=== PATIENT | male | born 1995 | race Caucasian/White ===

== ENCOUNTER 2019-01-15 21:43 | Emergency (ER) | payer SELFPAY | END 2019-01-15 22:25 | disposition left against medical advice (07) | LOC: ER 21:43 | DX: Z53.21 Procedure and treatment not carried out due to patient leaving prior to being seen by health care provider (principal); R42 Dizziness and giddiness ==

== ENCOUNTER 2019-03-30 00:11 | Emergency (ER) | payer MEDICAID ==
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
[2019-03-30 01:09] LABS: ALCOHOL 119 mg/dL (NONE DETECTED); ANION GAP 11 (5-19); BLOOD UREA NITROGEN 9 mg/dL (7-20); CALCIUM 8.9 mg/dL (8.4-10.2); CARBON DIOXIDE 27 mmol/L (22-30); CHLORIDE 102 mmol/L (98-107); GLUCOSE 104 mg/dL (75-110); POTASSIUM 3.8 mmol/L (3.6-5.0)
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
[2019-03-30 02:20] VITALS: BP 121/77
[2019-03-30 03:18] LABS: ARTERIAL BLOOD BASE EXCESS -1.9 mmol/L; ARTERIAL BLOOD H2CO3 1.35 mmol/L (1.05-1.35); ARTERIAL BLOOD O2 SATURATION 97.1 % (94-98); ARTERIAL BLOOD PH 7.35 (7.35-7.45); ARTERIAL BLOOD PO2 98.2 mmHg (80-100); ARTERIAL BLOOD TOTAL CO2 25.4 mmol/L (23-27)
[2019-03-30 03:19] LABS: ARTERIAL BLOOD FIO2 2L
[2019-03-30 03:27] LABS: ABSOLUTE EOSINOPHILS # (AUTO) 0.1 10^3/uL (0.0-0.6); ABSOLUTE MONOCYTES (AUTO) 0.3 10^3/uL (0.1-1.4); ABSOLUTE NEUT (AUTO) 4.5 10^3/uL (1.7-8.2); BASOPHILS % (AUTO) 0.5 % (0-2); HEMATOCRIT 41.3 % (37.9-51.0); HEMOGLOBIN 14.1 g/dL (13.5-17.0); LYMPHOCYTES % (AUTO) 29.3 % (13-45); MEAN CORPUSCULAR HEMOGLOBIN 29.6 pg (27.0-33.4); MEAN CORPUSCULAR HGB CONC 34.2 g/dL (32.0-36.0); MEAN CORPUSCULAR VOLUME 87 fl (80-97); PLATELET COUNT 265 10^3/uL (150-450); RED BLOOD COUNT 4.76 10^6/uL (4.35-5.55); RED CELL DISTRIBUTION WIDTH 12.9 % (11.5-14.0); SEGMENTED NEUTROPHILS % (AUTO) 64.2 % (42-78); TOTAL CELLS COUNTED % (AUTO) 100 %
[2019-03-30 03:31] LABS: ALBUMIN 4.1 g/dL (3.5-5.0); ALKALINE PHOSPHATASE 58 U/L (38-126); ASPARTATE AMINO TRANSFERASE 39 U/L (17-59); BILIRUBIN,DIRECT 0.2 mg/dL (0.0-0.4); BILIRUBIN,TOTAL 0.8 mg/dL (0.2-1.3)
[2019-03-30 03:34] LABS: URINE AMPHETAMINES SCREEN NEGATIVE; URINE BARBITURATES SCREEN NEGATIVE; URINE BENZODIAZEPINES SCREEN UNCONFIRMED POSITIVE; URINE COCAINE SCREEN NEGATIVE; URINE MARIJUANA (THC) SCREEN NEGATIVE; URINE METHADONE SCREEN NEGATIVE; URINE PHENCYCLIDINE SCREEN NEGATIVE
[2019-03-30 03:48] LABS: NT PRO BNP 25 pg/mL (<125)
[2019-03-30 03:56] LABS: TROPONIN I < 0.012 ng/mL
--- NOTE | 2019-03-30 05:47 | RADIOLOGY REPORT (SQ) ---
CLINICAL HISTORY: Repeat CXR to abnormal first (comparison) COMPARISON: March 30 2019. TECHNIQUE: XR CHEST 2 VIEWS 03/30/2019 4:26 AM CDT FINDINGS: Cardiac silhouette is normal in size. Lungs are clear without consolidation, atelectasis, mass or edema. There is no pleural effusion. There is no pneumothorax. There are no acute osseous findings. IMPRESSION: Clear lungs.
--- NOTE | 2019-03-30 19:06 | EKG REPORT ---
SEVERITY:- OTHERWISE NORMAL ECG - SINUS RHYTHM RIGHT AXIS DEVIATION : Confirmed by: Jovita Encinas MD 30-Mar-2019 19:06:04
== END 2019-03-30 06:15 | disposition home or self-care (01) ==
LOC: ER 00:11
DX: S09.90XA Unspecified injury of head, initial encounter (principal); S90.511A Abrasion, right ankle, initial encounter; R07.81 Pleurodynia; M79.641 Pain in right hand; M25.571 Pain in right ankle and joints of right foot; W19.XXXA Unspecified fall, initial encounter; F10.129 Alcohol abuse with intoxication, unspecified; R09.02 Hypoxemia; R40.0 Somnolence
CPT/HCPCS: 93005; 99284; 36415; 80307 ×2; 82803; 85025; 80076; 80048; 84484; 83880; 73610; 71046; 73130; 71101; 70450; 72125; 93010; L0120